=== PATIENT | female | born 1965 | race Caucasian/White ===

== ENCOUNTER 2016-05-29 08:35 | Emergency (ER) | payer OTHER ==
[2016-05-29] MEDS ORDERED: Benzonatate 100 MG CAP ONE (08:47)
[2016-05-29] MEDS ORDERED: Ibuprofen 800 MG TAB ONE (08:54)
[2016-05-29] MEDS ORDERED: Dexamethasone 4 mg/ml Vial ONE (09:25)
--- NOTE | 2016-05-29 09:27 | ERRECORD ---
[facility] EMERGENCY RECORD HPI COUGH (08:46 WMEI) CHIEF COMPLAINT: Patient presents for evaluation of cough, productive of green sputum. HISTORIAN: History provided by patient, X 24 HRS. LOCATION: Symptoms are generalized. QUALITY: Symptoms described as choking sensation. TIME COURSE: Sudden onset of symptoms, 1, days ago. ASSOCIATED WITH: No associated chest pain, Associated with chills, No associated fever. EXACERBATED BY: Patient's condition exacerbated by nothing. RELIEVED BY: Patient's condition relieved by nothing. ROS (08:49 WMEI) CONSTITUTIONAL: Historian reports chills, denies fever. EYES: Historian denies eye pain, denies eye discharge. ENT: Historian reports dysphagia, reports rhinorrhea, reports sore throat. CARDIOVASCULAR: Historian denies chest pain, denies diaphoresis. RESPIRATORY: Historian reports cough, green. GI: Historian denies abdominal pain, denies nausea, reports vomiting. MUSCULOSKELETAL: Historian denies joint redness, denies joint stiffness. SKIN: Historian denies skin changes, denies skin lesions. NEUROLOGIC: Historian denies dizziness, denies mental status changes. PSYCHIATRIC: Historian denies drug abuse, denies emotional lability, denies hallucinations. PAST MEDICAL HISTORY (08:42 KMOR) MEDICAL HISTORY: Notes: hypertension, hypothyroidism, diverticulitis, insomnia, esophageal spasm, right upper lobe granuloma (stable). FEMALE SURGICAL HISTORY: normal myocardial perfusion scan (10/07), EGD, tonsillectomy, cholectystoectomy, colon resection, foot surgery, appendectomy, hysterectomy (precancerous cells/heavy bleeding), bilateral ovarian removal. PSYCHIATRIC HISTORY: No previous psychiatric history. SOCIAL HISTORY: Patient denies alcohol use, Patient denies drug use, Patient has no smoking history. KNOWN ALLERGIES No Known Drug Allergies CURRENT MEDICATIONS losartan-hydrochlorothiazide: TABLET : Strength - 100 mg-25 mg : ORAL Patient Dose: 1 tab(s) Oral once a day. (08:43 [facility]) L-Thyroxine Sodium: &a-1R&a+25V*p+0X*l7672Q*c202B*c15G*c2P*p-0X&a-25V&a+1R Name: Perez Lyndsey K : 1965 F50 MedRec: [id number] AcctNum: [id number] Prepared: Danna May 29, 2016 09:37 by Interface Page 1 of 3 pMD [facility] EMERGENCY RECORD TABLET : Strength - 125 mcg : ORAL Patient Dose: 125 mcg Oral once a day. (08:44 [facility]) Premarin: TABLET : Strength - 1.25 mg : ORAL Patient Dose: 1.25 mg Oral once a day. (08:44 [facility]) dicyclomine: TABLET : Strength - 20 mg : ORAL Patient Dose: 20 mg Oral 4 times a day. (08:45 [facility]) Lunesta: TABLET : Strength - 3 mg : ORAL Patient Dose: 3 mg Oral once a day (after a meal). (08:45 [facility]) Unisom Sleepgels: CAPSULE : Strength - 50 mg : ORAL Patient Dose: 1 cap(s) Oral. (08:45 [facility]) ZzzQuil: CAPSULE : Strength - 25 mg : ORAL Patient Dose: As Needed. (08:46 [facility]) Advil: TABLET : Strength - 200 mg : ORAL Patient Dose: As Needed. (08:46 [facility]) VITAL SIGNS VITAL SIGNS: Pulse: 112, Resp: 22, Temp: 99.9 (Oral), Pain: 10, O2 sat: 99 on Room Air, Time: 05/29/2016 08:40. (08:40 KMOR) BP: 162/115, Time: 05/29/2016 08:45. (08:45 KMOR) PHYSICAL EXAM (08:51 WMEI) CONSTITUTIONAL: Vital Signs Reviewed, Respiratory rate normal, Patient alert and oriented to person, place and time. HEAD: Head exam included findings of head atraumatic, normocephalic. EYES: Conjunctiva normal, Sclera normal. ENT: Ear exam normal, Nose exam normal, Pharynx, injected bilaterally. NECK: Neck exam included findings of normal range of motion, Trachea midline. RESPIRATORY CHEST: Respiratory exam included findings of no respiratory distress, Breath sounds clear, Chest exam included findings of chest movement symmetrical. CARDIOVASCULAR: Cardiovascular exam included findings of heart rate regular rate and rhythm, Heart sounds normal. ABDOMEN FEMALE: Abdominal exam included findings of abdomen nontender, Bowel sounds normal. UPPER EXTREMITY: Upper extremity exam included findings of inspection normal, Range of motion normal, Motor strength normal. LOWER EXTREMITY: Left lower leg exam normal, Right lower leg exam normal. NEURO: Matthew coma scale 15, Neuro exam findings include patient oriented to person, place and time, Speech normal, Gait normal. &a-1R&a+25V*p+0X*x3287S*c202B*c15G*c2P*p-0X&a-25V&a+1R Name: Lyndsey Perez : 1965 F50 MedRec: [id number] AcctNum: [id number] Prepared: Danna May 29, 2016 09:37 by Interface Page 2 of 3 pMD [facility] EMERGENCY RECORD SKIN: Skin exam included findings of skin warm, dry, and normal in color. LYMPHATIC: Lymphatic exam normal. PSYCHIATRIC: Psychiatric exam included findings of patient oriented to person place and time, Normal affect, Judgment normal, Insight normal. MEDICATION ADMINISTRATION SUMMARY Drug Name: Decadron oral, Dose Ordered: 10 mg, Route: Oral, Status: Given, Time: 09:28 05/29/2016, Drug Name: *ibuprofen, Dose Ordered: 800 mg, Route: Oral, Status: Given, Time: 08:57 05/29/2016, Drug Name: Tessalon, Dose Ordered: 200 mg, Route: Oral, Status: Given, Time: 08:49 05/29/2016, *Additional information available in notes, Detailed record available in Medication Service section. DOCTOR NOTES TEXT: I assumed care of this patient from Dr. Delgado. In brief, patient presents with sore throat, cough, body aches and malaise. Patient was nontoxic and clinically well appearing, tolerating oral intake and afebrile after antipyretics. No concern for systemic illness or focal bacterial infection that would prompt further workup or investigation. Appropriate for outpatient symptomatic care and primary physician follow up. (09:21 JJAC) PATIENT STATUS: Patient has improved since arrival to emergency department. (09:22 JJAC) PATIENT PLAN: The patient will be discharged, The patient will follow up with primary care physician. (09:22 JJAC) PROBLEM LIST No recorded problems DIAGNOSIS (09:19 JJAC) FINAL: PRIMARY: Viral infection. PRESCRIPTION (09:20 JJAC) Tessalon Perles: CAPSULE (HARD, SOFT, ETC.) : 100 mg : ORAL : Quantity: 1 Unit: tab(s) Route: ORAL Schedule: 3 times a day Dispense: 15 May substitute. Refills: No Refills . NOTES: No refills. DISPOSITION PATIENT: Disposition Type: Discharge, Disposition: *Discharge Home. (09:19 CATALINA) Patient left the department. (09:33 LUNA) Miranda: DONNY=LUCA Floyd, Laci ARNOLD=MD Shweta, Edy KMOR=LUCA Trevizo, Tracy WMEI=DO Delgado William &a-1R&a+25V*p+0X*e2565M*c202B*c15G*c2P*p-0X&a-25V&a+1R Name: Ana Lyndsey K : 1965 F50 MedRec: [id number] AcctNum: [id number] Prepared: Danna May 29, 2016 09:37 by Interface Page 3 of 3 pMD MTDD
--- NOTE | 2016-05-29 09:33 | PICIS ---
[facility] EMERGENCY RECORD TRIAGE (MonMay 29, 2016 08:39 KMOR) TRIAGE NOTES: Cough, sore throat and headache started last night. (MonMay 29, 2016 08:39 KMOR) PATIENT: AGE: 50, GENDER: female, : Mon1965, TIME OF GREET: MonMay 29, 2016 08:36, PREFERRED LANGUAGE: [place], ETHNICITY: Not or , ECODE BILLING MAP: [facility], SSN: [id number], Zip Code: [address], KG WEIGHT: 97.52, PHONE: , , , PERSON ID: [id number], PCP: Yanira WINKLER LINDA. (MonMay 29, 2016 08:39 KMOR) NAME: Lyndsey Perez (08:46 LFOS) COMPLAINT: Cough. (MonMay 29, 2016 08:39 KMOR) ADMISSION: URGENCY: 4 Non Urgent, ADMISSION SOURCE: Home, TRANSPORT: CAR, BED: ER -02. (MonMay 29, 2016 08:39 KMOR) ASSESSMENT: Assessment: A&OX4. RR EVEN AND UNLABORED., Symptoms began yesterday. (08:42 KMOR) PAIN: Patient complains of pain described as, aching, on a scale 0-10 patient rates pain as 10, Location THROAT. (08:42 KMOR) SIRS SCORING: Heart Rate 110-139 (2), Temp range 96.8-101.1 (0), respiratory rate 12-24 (0), Mental Status altered: no (0), Yes, Infection or Suspected Infection. (08:42 KMOR) TRIAGE SCREENING: Patient denies suicidal ideation, Patient denies presence of domestic violence. (08:42 KMOR) LMP: LMP: Hysterectomy. (08:42 KMOR) PROVIDERS: TRIAGE NURSE: Tracy Trevizo RN. (MonMay 29, 2016 08:39 KMOR) VITAL SIGNS: Pulse 112, Resp 22, Temp 99.9, (Oral), Pain 10, O2 Sat 99, on Room Air, Time 05/29/2016 08:40. (08:40 KMOR) KNOWN ALLERGIES No Known Drug Allergies CURRENT MEDICATIONS losartan-hydrochlorothiazide: TABLET : Strength - 100 mg-25 mg : ORAL Patient Dose: 1 tab(s) Oral once a day. (08:43 [facility]) L-Thyroxine Sodium: TABLET : Strength - 125 mcg : ORAL Patient Dose: 125 mcg Oral once a day. (08:44 [facility]) Premarin: TABLET : Strength - 1.25 mg : ORAL Patient Dose: 1.25 mg Oral once a day. (08:44 [facility]) dicyclomine: TABLET : Strength - 20 mg : ORAL Patient Dose: 20 mg Oral 4 times a day. (08:45 [facility]) Lunesta: TABLET : Strength - 3 mg : ORAL Patient Dose: 3 mg Oral once a day (after a meal). (08:45 [facility]) &a-1R&a+25V*p+0X*x5631B*c202B*c15G*c2P*p-0X&a-25V&a+1R Name: Lyndsey Perez : 1965 F50 MedRec: [id number] AcctNum: [id number] Prepared: Danna May 29, 2016 09:44 by Interface Page 1 of 7 pMD [facility] EMERGENCY RECORD Unisom Sleepgels: CAPSULE : Strength - 50 mg : ORAL Patient Dose: 1 cap(s) Oral. (08:45 [facility]) ZzzQuil: CAPSULE : Strength - 25 mg : ORAL Patient Dose: As Needed. (08:46 [facility]) Advil: TABLET : Strength - 200 mg : ORAL Patient Dose: As Needed. (08:46 [facility]) VITAL SIGNS VITAL SIGNS: Pulse: 112, Resp: 22, Temp: 99.9 (Oral), Pain: 10, O2 sat: 99 on Room Air, Time: 05/29/2016 08:40. (08:40 KMOR) BP: 162/115, Time: 05/29/2016 08:45. (08:45 KMOR) NURSING ASSESSMENT: ENT (08:53 KMOR) CONSTITUTIONAL: Patient arrives ambulatory, Gait steady, History obtained from patient, Patient appears, uncomfortable. PAIN: aching pain, to the throat, on a scale 0-10 patient rates pain as 10. ENT: Ear assessment findings include ear normal to inspection, Nasal assessment findings include nose normal to inspection, Sinuses normal, Nasal mucosa normal, Congestion, bilaterally, Mouth and throat assessment findings include mouth inspection normal, Uvula, with redness, with moderate swelling, Tonsils, Mucous membranes pink, and moist, Able to swallow, Speech normal, no associated fever, Associated with headache, frontal. RESPIRATORY/CHEST: Breath sounds clear, Respiratory assessment findings include respiratory effort easy, Respirations regular, Conversing normally, Neck and chest exam findings include trachea midline, Chest expansion equal, Chest movement symmetrical, no signs of distress, Associated with cough, loose, productive of, yellow sputum. NOTES: Patient tolerated procedure well. NURSING PROCEDURE: DISCHARGE NOTE (09:32 KMOR) DISCHARGE: Patient discharged to home, ambulating without assistance, family driving, accompanied by //partner, Summary of Care printed/ provided, Transition record given to patient, Discharge instructions given to patient, Simple or moderate discharge teaching performed, by LUCA Molina, Discharge instructions and follow up reviewed with patient. Pt ambulatory to discharge desk., Prescriptions given and instructions on side effects given, Name of prescription(s) given: Bhavesh cantrell person(s) verbalized understanding of discharge instructions and follow-up care. BELONGINGS: Belongings remain with patient, Valuables remain with patient. &a-1R&a+25V*p+0X*g9535L*c202B*c15G*c2P*p-0X&a-25V&a+1R Name: Lyndsey Perez : 1965 F50 MedRec: [id number] AcctNum: [id number] Prepared: Danna May 29, 2016 09:44 by Interface Page 2 of 7 pMD [facility] EMERGENCY RECORD NURSING PROCEDURE: ENT (08:53 KMOR) PATIENT IDENTIFIER: Patient actively involved in identification process, Patient's identity verified by patient stating name, Patient's identity verified by patient stating date. ENT: Nasal swab collected, labeled in the presence of the patient and sent to lab for testing of, influenza A, influenza B, collected by LUCA Molina, Throat swab collected, labeled in the presence of the patient and sent to the lab for testing of, rapid strep, collected by LUCA Molina. NOTES: Patient tolerated procedure well. ORDER DETAILS Order Name: Influenza A&B Ag Screen, Status: Active, Time: 08:46 05/29/2016, User: [employer], - Ordered for: DO Delgado William, - Entered by: DO Delgado William - [place] May 29, 2016 08:46, - Quantity: 1, Order Name: Strep Group A Screen, Status: Active, Time: 08:49 05/29/2016, User: [employer], - Ordered for: DO Delgado William, - Entered by: DO Delgado William - [place] May 29, 2016 08:49, - Quantity: 1. MEDICATION ADMINISTRATION SUMMARY Drug Name: Decadron oral, Dose Ordered: 10 mg, Route: Oral, Status: Given, Time: 09:28 05/29/2016, Drug Name: *ibuprofen, Dose Ordered: 800 mg, Route: Oral, Status: Given, Time: 08:57 05/29/2016, Drug Name: Tessalon, Dose Ordered: 200 mg, Route: Oral, Status: Given, Time: 08:49 05/29/2016, *Additional information available in notes, Detailed record available in Medication Service section. MEDICATION SERVICE Decadron oral: Order: Decadron oral (dexamethasone) - Dose: 10 mg : Oral Ordered by: Edy Rock MD Entered by: Edy Rock MD [place] May 29, 2016 09:24 , Acknowledged by: Tracy Trevizo RN [place] May 29, 2016 09:28 Documented as given by: Tracy Trevizo RN [place] May 29, 2016 09:28 Patient, Medication, Dose, Route and Time verified prior to administration. Amount given: 10mg, Site: Medication administered P.O., Correct patient, time, route, dose and medication confirmed prior to administration, Patient advised of actions and side-effects prior to administration, Allergies confirmed and medications reviewed prior to administration, Patient in position of comfort, Side rails up, Cart in lowest position, Family at bedside. ibuprofen: Order: ibuprofen - Dose: 800 mg : Oral &a-1R&a+25V*p+0X*f0749Q*c202B*c15G*c2P*p-0X&a-25V&a+1R Name: Lyndsey Perez : 1965 F50 MedRec: [id number] AcctNum: [id number] Prepared: MonMay 29, 2016 09:44 by Interface Page 3 of 7 pMD [facility] EMERGENCY RECORD Schedule: Now Notes: Read back and verified, Verbal Order Ordered by: Jona Delgado DO Entered by: LUCA Tubbs May 29, 2016 08:55 , Acknowledged by: LUCA Tubbs May 29, 2016 08:55 Documented as given by: LUCA Tubbs May 29, 2016 08:57 Patient, Medication, Dose, Route and Time verified prior to administration. Amount given: 800mg, Site: Medication administered P.O., Correct patient, time, route, dose and medication confirmed prior to administration, Patient advised of actions and side-effects prior to administration, Allergies confirmed and medications reviewed prior to administration, Patient in position of comfort, Side rails up, Cart in lowest position. : Follow Up : Response assessment performed, No signs or symptoms of allergic reaction noted. (09:30 KMOR) Tessalon: Order: Tessalon (benzonatate) - Dose: 200 mg : Oral Schedule: Now Ordered by: Jona Delgado DO Entered by: DO Danna Stevens May 29, 2016 08:46 , Acknowledged by: Laci Floyd RN MonMay 29, 2016 08:46 Documented as given by: LUCA Ortega May 29, 2016 08:49 Patient, Medication, Dose, Route and Time verified prior to administration. Amount given: 200 MG, Site: Medication administered P.O., Correct patient, time, route, dose and medication confirmed prior to administration, Patient advised of actions and side-effects prior to administration, Allergies confirmed and medications reviewed prior to administration, Patient in position of comfort, Side rails up, Cart in lowest position, Call light in reach. : Follow Up : Response assessment performed, No signs or symptoms of allergic reaction noted. (09:30 KMOR) HPI COUGH (08:46 WMEI) CHIEF COMPLAINT: Patient presents for evaluation of cough, productive of green sputum. HISTORIAN: History provided by patient, X 24 HRS. LOCATION: Symptoms are generalized. QUALITY: Symptoms described as choking sensation. TIME COURSE: Sudden onset of symptoms, 1, days ago. ASSOCIATED WITH: No associated chest pain, Associated with chills, No associated fever. EXACERBATED BY: Patient's condition exacerbated by nothing. RELIEVED BY: Patient's condition relieved by nothing. ROS (08:49 WMEI) CONSTITUTIONAL: Historian reports chills, denies fever. EYES: Historian denies eye pain, denies eye discharge. &a-1R&a+25V*p+0X*z3490R*c202B*c15G*c2P*p-0X&a-25V&a+1R Name: Lyndsey Perez : 1965 F50 MedRec: [id number] AcctNum: [id number] Prepared: Danna May 29, 2016 09:44 by Interface Page 4 of 7 pMD [facility] EMERGENCY RECORD ENT: Historian reports dysphagia, reports rhinorrhea, reports sore throat. CARDIOVASCULAR: Historian denies chest pain, denies diaphoresis. RESPIRATORY: Historian reports cough, green. GI: Historian denies abdominal pain, denies nausea, reports vomiting. MUSCULOSKELETAL: Historian denies joint redness, denies joint stiffness. SKIN: Historian denies skin changes, denies skin lesions. NEUROLOGIC: Historian denies dizziness, denies mental status changes. PSYCHIATRIC: Historian denies drug abuse, denies emotional lability, denies hallucinations. PAST MEDICAL HISTORY (08:42 KMOR) MEDICAL HISTORY: Notes: hypertension, hypothyroidism, diverticulitis, insomnia, esophageal spasm, right upper lobe granuloma (stable). FEMALE SURGICAL HISTORY: normal myocardial perfusion scan (10/07), EGD, tonsillectomy, cholectystoectomy, colon resection, foot surgery, appendectomy, hysterectomy (precancerous cells/heavy bleeding), bilateral ovarian removal. PSYCHIATRIC HISTORY: No previous psychiatric history. SOCIAL HISTORY: Patient denies alcohol use, Patient denies drug use, Patient has no smoking history. PHYSICAL EXAM (08:51 WMEI) CONSTITUTIONAL: Vital Signs Reviewed, Respiratory rate normal, Patient alert and oriented to person, place and time. HEAD: Head exam included findings of head atraumatic, normocephalic. EYES: Conjunctiva normal, Sclera normal. ENT: Ear exam normal, Nose exam normal, Pharynx, injected bilaterally. NECK: Neck exam included findings of normal range of motion, Trachea midline. RESPIRATORY CHEST: Respiratory exam included findings of no respiratory distress, Breath sounds clear, Chest exam included findings of chest movement symmetrical. CARDIOVASCULAR: Cardiovascular exam included findings of heart rate regular rate and rhythm, Heart sounds normal. ABDOMEN FEMALE: Abdominal exam included findings of abdomen nontender, Bowel sounds normal. UPPER EXTREMITY: Upper extremity exam included findings of inspection normal, Range of motion normal, Motor strength normal. LOWER EXTREMITY: Left lower leg exam normal, Right lower leg exam normal. NEURO: Matthew coma scale 15, Neuro exam findings include patient oriented to person, place and time, Speech normal, Gait normal. SKIN: Skin exam included findings of skin warm, dry, and normal &a-1R&a+25V*p+0X*e3169J*c202B*c15G*c2P*p-0X&a-25V&a+1R Name: Lyndsey Perez : 1965 F50 MedRec: [id number] AcctNum: [id number] Prepared: Danna May 29, 2016 09:44 by Interface Page 5 of 7 pMD [facility] EMERGENCY RECORD in color. LYMPHATIC: Lymphatic exam normal. PSYCHIATRIC: Psychiatric exam included findings of patient oriented to person place and time, Normal affect, Judgment normal, Insight normal. EVENTS TRANSFER: Triage to Emergency Emergency Room -02. (Danna May 29, 2016 08:39 KMOR) Removed from Emergency Emergency Room -02. (09:33 KMOR) DOCTOR NOTES TEXT: I assumed care of this patient from Dr. Delgado. In brief, patient presents with sore throat, cough, body aches and malaise. Patient was nontoxic and clinically well appearing, tolerating oral intake and afebrile after antipyretics. No concern for systemic illness or focal bacterial infection that would prompt further workup or investigation. Appropriate for outpatient symptomatic care and primary physician follow up. (09:21 JJA) PATIENT STATUS: Patient has improved since arrival to emergency department. (09: JJA) PATIENT PLAN: The patient will be discharged, The patient will follow up with primary care physician. (09:22 JJA) PROBLEM LIST No recorded problems DIAGNOSIS (09: JJA) FINAL: PRIMARY: Viral infection. DISPOSITION PATIENT: Disposition Type: Discharge, Disposition: *Discharge Home. (09:19 JJAC) Patient left the department. (09:33 KMOR) INSTRUCTION (09:20 [facility]) DISCHARGE: URI, VIRAL, NO ABX (ADULT). FOLLOWUP: Yanira WINKLER LINDA, Internal Medicine, [address] [place] [address] [id number] [id number], [phone]. SPECIAL: Increase fluid intake. Symptomatic treatment for sore throat and headache. Return if you feel you are getting worse. PRESCRIPTION (09:20 [facility]) Tessalon Perles: CAPSULE (HARD, SOFT, ETC.) : 100 mg : ORAL : Quantity: 1 Unit: tab(s) Route: ORAL Schedule: 3 times a day Dispense: 15 May substitute. Refills: No Refills . NOTES: No refills. IMAGING &a-1R&a+25V*p+0X*q4523H*c202B*c15G*c2P*p-0X&a-25V&a+1R Name: Lyndsey Perez : 1965 [facility] MedRec: [id number] AcctNum: [id number] Prepared: Danna May 29, 2016 09:44 by Interface Page 6 of 7 pMD [facility] EMERGENCY RECORD *DISCHARGE INSTRUCTIONS RECEIPT: Image captured from scanner. (09:32 KMOR) *SUPPLY CHARGE SHEET: Image captured from scanner. (09:33 KMOR) ADMIN DIGITAL SIGNATURE: MD Rock Jason. (09:22 JJA) MD Rock Jason. (09:25 JJA) LUCA Trevizo Krista. (09:34 KMOR) Miranda: JHIG=LUCA Floyd, Laci [facility]=MD Rock Jason KMOR=LUCA Trevizo Krista LFOS=Dany, REGISTRAR, Shadia Villarreal WMEI=DO Delgado William &a-1R&a+25V*p+0X*s2668T*c202B*c15G*c2P*p-0X&a-25V&a+1R Name: Lyndsey Perez : 1965 [facility] MedRec: [id number] AcctNum: [id number] Prepared: Danna May 29, 2016 09:44 by Interface Page 7 of 7 pMD MTDD
== END 2016-05-29 09:29 | disposition home or self-care (01) ==
LOC: BURERS 08:35
DX: B34.9 Viral infection, unspecified (principal); I10 Essential (primary) hypertension; E03.9 Hypothyroidism, unspecified
CPT/HCPCS: 87430; 99283; J1100

== ENCOUNTER 2016-09-20 14:00 | Emergency (ER) | payer OTHER ==
[2016-09-20] MEDS ORDERED: Nitroglycerin 0.4 MG TAB (25 Tab Bottle) ONE (14:12)
[2016-09-20 14:25] LABS: #Basophils 0.1 thou/uL (0.0-0.2); #Eosinphils 0.1 thou/uL (0.0-0.7); #Lymphocytes 3.4 thou/uL (1.20-3.40); #Monocytes 0.5 thou/uL (0.11-0.59); #Neutrophils 4.7 thou/uL (1.40-6.50); %Basophils 0.9 % (0.0-1.0); %Eosinophils 1.4 % (0.0-10.0); %Lymphocytes 38.4 % (21.0-51.0); %Monocytes 5.6 % (0.0-10.0); %Neutrophils 53.7 % (42.0-75.0); Hemoglobin 14.8 g/dL (12.0-16.0); Mean Corpuscular Hemoglobin 31.7 pg (27.0-31.0); Mean Corpuscular Volume 90.6 fl (81.0-99.0); Mean Platelet Volume 6.6 fL (7.4-10.4); Platelet Count 345 thou/uL (130-400); RBC Distribution Width 11.9 % (11.5-14.5); Red Blood Cell (RBC) Count 4.68 mill/uL (4.20-5.40); White Blood Cell (WBC) Count 8.8 thou/uL (4.8-10.8)
[2016-09-20] MEDS ORDERED: Acetaminophen 500 MG TAB ONE (14:25)
--- NOTE | 2016-09-20 14:31 | RAD ---
PORTABLE CHEST: History: Chest pain. Comparison: None. FINDINGS: Lungs are clear. No pneumothorax or effusion. Cardiac silhouette and mediastinal contours are normal . IMPRESSION: No acute cardiopulmonary process. POS: CET
[2016-09-20 14:40] LABS: Bilirubin Negative (Negative); Blood, Urine Trace (Negative); Clarity Clear (Clear); Glucose, Urine (Dipstick) Negative (Negative); Leukocyte Negative (Negative); Nitrite Negative (Negative); Protein, Urine (Dipstick) Negative (Neg-Trace); Urobilinogen 0.2 mg/dL (0.2-1.0); pH, Urine 5.5 (5.0-9.0)
[2016-09-20 14:45] LABS: Carbon Dioxide 23 mmol/L (22-29); Chloride 103 mmol/L (98-107); Potassium 3.7 mmol/L (3.5-5.1); Sodium 140 mmol/L (136-145); Troponin I Less than 0.010 ng/mL (< 0.028)
[2016-09-20 14:46] LABS: ALT (SGPT) 31 U/L (8-55); AST (SGOT) 26 U/L (5-34); Albumin 4.5 g/dL (3.5-5.0); Alkaline Phosphatase 57 U/L (40-150); Anion Gap 18 mmol/L (10-20); BUN (Urea Nitrogen) 19 mg/dL (9.8-20.1); Bilirubin, Total 0.5 mg/dL (0.2-1.2); CK (CPK) 167 U/L (29-168); Calc. Creatinine Clearance 0 mL/min (70-130); Calcium 10.1 mg/dL (7.8-10.44); Estimated GFR-MDRD 66; Globulin 3.5 g/dL (2.4-3.5); Glucose 111 mg/dL (70-105); Lipase 37 U/L (8-78)
[2016-09-20 14:54] LABS: Bacteria/HPF Rare-Few HPF (None Seen); RBC/HPF 0-3 HPF (0-3); Squamous Epithelial 0-3 HPF (0-3); WBC/HPF None Seen HPF (0-3)
== END 2016-09-20 15:26 | disposition short-term general hospital (02) ==
LOC: BURERS 14:00
DX: R07.2 Precordial pain (principal); R55 Syncope and collapse; I10 Essential (primary) hypertension; E03.9 Hypothyroidism, unspecified; Z79.899 Other long term (current) drug therapy
CPT/HCPCS: 36415; 71010; 80053; 81003; 81015; 82553; 83690; 84484; 85025; 85379; 93005; 94760; 96360

== ENCOUNTER 2020-01-24 20:43 | Emergency (ER) | payer MEDICARE ==
[~2020-01-24 20:43] MED LIST: Iopamidol 370 76% 100 ML VIAL ONE
[2020-01-24 21:09] LABS: #Basophils 0.1 thou/uL (0.0-0.2); #Eosinphils 0.1 thou/uL (0.0-0.7); #Lymphocytes 3.5 thou/uL (1.20-3.40); #Monocytes 0.5 thou/uL (0.11-0.59); #Neutrophils 3.5 thou/uL (1.40-6.50); %Basophils 1.6 % (0.0-1.0); %Eosinophils 1.8 % (0.0-10.0); %Lymphocytes 45.4 % (21.0-51.0); %Monocytes 6.3 % (0.0-10.0); Hemoglobin 14.1 g/dL (12.0-16.0); Mean Corpuscular HGB CONC 31.1 g/dL (32.0-36.0); Mean Corpuscular Hemoglobin 28.7 pg (27.0-31.0); Mean Corpuscular Volume 92.5 fL (78.0-98.0); Mean Platelet Volume 7.3 fL (7.4-10.4); Platelet Count 318 thou/uL (130-400); RBC Distribution Width 12.3 % (11.5-14.5); Red Blood Cell (RBC) Count 4.92 mill/uL (4.20-5.40); White Blood Cell (WBC) Count 7.7 thou/uL (4.8-10.8)
[2020-01-24] MEDS ORDERED: Aspirin Chewable 81 MG TAB ONE (21:09)
[2020-01-24 21:22] LABS: ALT (SGPT) 217 U/L (8-55); AST (SGOT) 130 U/L (5-34); Albumin 4.4 g/dL (3.5-5.0); Alkaline Phosphatase 82 U/L (40-110); Anion Gap 19 mmol/L (10-20); BUN (Urea Nitrogen) 13 mg/dL (9.8-20.1); Bilirubin, Total 0.5 mg/dL (0.2-1.2); Calc. Creatinine Clearance 0 mL/min (70-130); Calcium 10.1 mg/dL (7.8-10.44); Carbon Dioxide 21 mmol/L (22-29); Chloride 104 mmol/L (98-107); Estimated GFR-MDRD 58; Globulin 3.3 g/dL (2.4-3.5); Glucose 175 mg/dL (70-105); Lipase 45 U/L (8-78); Potassium 3.5 mmol/L (3.5-5.1); Protein, Total 7.7 g/dL (6.0-8.3); Sodium 140 mmol/L (136-145)
[2020-01-24] MEDS ORDERED: Ondansetron PF 4 MG/2 ML Vial ONE (21:48)
[2020-01-24 23:10] LABS: Bilirubin Negative (Negative); Blood, Urine Negative (Negative); Clarity Clear (Clear); Glucose, Urine (Dipstick) Negative (Negative); Ketone, Urine Negative (Negative); Leukocyte Negative (Negative); Nitrite Negative (Negative); Protein, Urine (Dipstick) 30 mg/dL (Neg-Trace); Specific Gravity, Urine 1.015 (1.005-1.030); Urobilinogen 0.2 mg/dL (Less than 2); pH, Urine 5.5 (5.0-9.0)
[2020-01-24 23:13] LABS: WBC/HPF 0-3 HPF (0-3)
[2020-01-24 23:14] LABS: Bacteria/HPF Rare-Few HPF (None Seen); Squamous Epithelial 0-3 HPF (0-3)
--- NOTE | 2020-01-25 08:25 | CT ---
CT ANGIO OF THE CHEST AND ABDOMEN: (CTA AORTIC DISSECTION) DATE: 01/24/2020. FINDINGS: Spiral CT angio of the chest and abdomen was done after a bolus of IV contrast to evaluate this patie nt with chest pain and hypotension. CT angio of the aorta shows no evidence of aortic dissection or aneurysm. 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 Coronary arteries both fill with contrast. The aorta is normal in caliber throughout its extent. In the abd omen, there is good filling of the celiac, SMA, and YUNG, as well as both renal arteries. The common iliac, external iliac, and internal iliac arteries fill as well. The chest is notable for patchy ground-glass areas throughout each lung. These were not present on a [address] that included the lower lobes. My understanding is the patient had no shortness o f breath or fever, though COVID is potentially in the diagnosis, as well as chronic lung disease that has occurred since 2016. There is no sign of pericardial effusion, pleural effusion, or other thora cic pathology such as mass or adenopathy. The liver is a little generous in size, but there is no space-occupying disease. The spleen, pancrea s, adrenal glands, and kidneys showed no acute findings. There has been a prior cholecystectomy. Th e visualized portions of bowel were unremarkable. There is no free air or free fluid. IMPRESSION: 1. No evidence of aortic dissection or aneurysm. 2. Patchy ground-glass areas throughout each lung, not present in 2016. 3. Major upper abdominal organs appeared intact. Hepatic size may be slightly large. Findings discussed with Dr. Romano at 2217 on 01/24/2020. CODE CR POS: HOME
--- NOTE | 2020-01-25 08:30 | RAD ---
PORTABLE CHEST: DATE: 01/24/2020. FINDINGS: An AP portable film at 2115 is compared with a 09/20/2016 study. Previously, the lungs were clear, but today there is some prominence of the markings and a few patchy areas spread throughout bilaterally. There is no lobar consolidation or effusion. There is no vasc ular congestion or edema. The heart size is normal. IMPRESSION: Patchy areas throughout the lungs, a new finding since 2016. POS: HOME
== END 2020-01-25 00:08 | disposition short-term general hospital (02) ==
LOC: BURERS 20:43
DX: I95.9 Hypotension, unspecified (principal); E03.9 Hypothyroidism, unspecified; E78.5 Hyperlipidemia, unspecified; I10 Essential (primary) hypertension; F32.9 Major depressive disorder, single episode, unspecified; Z79.899 Other long term (current) drug therapy
CPT/HCPCS: 71045; 71275; 72191; 74175; 80053; 81003; 81015; 83690; 83880; 84443; 84484; 85025; 85379; 93005; 94760; 96361; 96374; J2405; Q9967

== ENCOUNTER 2023-11-03 11:51 | Emergency (ER) | payer MEDICARE, OTHER ==
[2023-11-03] MEDS ORDERED: Morphine 4 MG/ML VIAL ONE (12:38)
[2023-11-03] MEDS ORDERED: Naproxen 500 MG TAB ONE (12:39)
[2023-11-03] MEDS ORDERED: Boostrix 0.5 ML (Tdap) VIAL (>/=7 yrs of age) ONE (13:08)
[2023-11-03] MEDS ORDERED: Bacitracin 1 PK ONE (13:08)
[2023-11-03] MEDS ORDERED: HYDROcodone/Acetaminophen 10/325 mg Tablet ONE (13:13)
== END 2023-11-03 13:50 | disposition home or self-care (01) ==
LOC: BURERS 11:51
DX: S42.022A Displaced fracture of shaft of left clavicle, initial encounter for closed fracture (principal); S80.212A Abrasion, left knee, initial encounter; I10 Essential (primary) hypertension; W01.0XXA Fall on same level from slipping, tripping and stumbling without subsequent striking against object, initial encounter; Y93.01 Activity, walking, marching and hiking; Y92.009 Unspecified place in unspecified non-institutional (private) residence as the place of occurrence of the external cause; Z23 Encounter for immunization
CPT/HCPCS: 90471; 90715; 96372; J2270

== ENCOUNTER 2025-02-24 03:57 | Emergency (ER) | payer MEDICARE ==
[2025-02-24] MEDS ORDERED: Benzonatate 100 MG CAP ONE (04:12)
[2025-02-24] MEDS ORDERED: Acetaminophen 500 MG TAB ONE (04:13)
[2025-02-24] MEDS ORDERED: predniSONE 20 MG TAB ONE (05:17)
== END 2025-02-24 05:33 | disposition home or self-care (01) ==
LOC: BURERS 03:57
DX: J18.9 Pneumonia, unspecified organism (principal); R09.81 Nasal congestion; I10 Essential (primary) hypertension
CPT/HCPCS: 71045; 87081; 87428; 87430; J7512; Q0162